=== PATIENT | female | born 2000 | race Caucasian/White ===

== ENCOUNTER 2019-05-07 09:25 | Emergency (ER) | payer OTHER ==
[~2019-05-07] VITALS: Ht 157.5 cm; Wt 45.5 kg
[2019-05-07 10:49] LABS: BASO % 0.2 % (0.0-1.0); EOS % 0.2 % (0.0-3.0); HEMATOCRIT 42.6 % (36.0-47.0); HEMOGLOBIN 13.4 g/dl (12.0-15.5); LYMPH # 0.8 10^3/uL (1.5-5.0); LYMPH % 12.2 % (24.0-44.0); MEAN CORPUSCULAR HEMOGLOBIN 30.3 pg (27.0-33.0); MEAN CORPUSCULAR HGB CONC 31.5 g/dl (32.0-36.5); MEAN CORPUSCULAR VOLUME 96.4 fl (80.0-96.0); MONO # 0.5 10^3/uL (0.0-0.8); MONO % 7.2 % (0.0-5.0); NEUTROPHILS % 79.9 % (36.0-66.0); PLATELET COUNT, AUTOMATED 252 10^3/uL (150-450); RED BLOOD COUNT 4.42 10^6/uL (4.00-5.40); WHITE BLOOD COUNT 6.3 10^3/uL (4.0-10.0)
[2019-05-07 12:43] LABS: CHLAMYDIA DNA AMPLIFICATION NEGATIVE (NEGATIVE); GC DNA AMPLIFICATION NEGATIVE (NEGATIVE)
--- NOTE | 2019-05-07 13:02 | REP ---
Pelvic ultrasound for pelvic pain: The studies performed transabdominal, endovaginal and Doppler ultrasound assessment: The uterus is anteverted and anteflexed and normal size measuring 8.9 x 3.3 x 4.9 cm. The endometrium is not thickened measuring 7.9 mm. Right ovary: The right ovary measures 3.1 x 1.8 x 3.3 cm and is normal size. There is a complex follicle measuring 1.0 x 1.4 0.5 cm. The There is vascular flow with Doppler assessment, the resistive index in the parenchymal arteries measuring 0.60. Left ovary: The left ovary measures 3.1 x 1.7 x 2.9 cm and is normal size. There is no dominant mass or cyst. There is vascular flow with the Doppler resistive index of the parenchymal arteries measuring 0.58. There is a trace of free fluid in the posterior cul-de-sac. Impression: Complex right ovarian follicle. There is vascular flow in both ovaries. Electronically Signed by Mahad Lopez MD 05/07/2019 12:54 P
[2019-05-07] MEDS ORDERED: ONDA4TAB6 PO (13:30)
[2019-05-07 13:37] VITALS: BP 126/60
--- NOTE | 2019-05-08 07:45 | ED PDOC ---
Post-Departure Follow-Up ft [facility] fp faxed formal report of pelvic us for fu Sukhdev Duckworth MD May 08, 2019 07:45
== END 2019-05-07 13:39 | disposition home or self-care (01) ==
LOC: M ED 09:25
DX: R10.9 Unspecified abdominal pain (principal); N83.01 Follicular cyst of right ovary

== ENCOUNTER 2020-03-02 16:37 | Emergency (ER) | payer OTHER ==
[~2020-03-02] VITALS: Ht 157.5 cm; Wt 48.3 kg
[~2020-03-02 16:37] MED LIST: ONDA4TAB6 PO
[2020-03-02] MEDS ORDERED: CETI-24 PO (17:18)
[2020-03-02] MEDS ORDERED: SERT-138 PO (17:18)
[2020-03-02 18:35] LABS: HEMATOCRIT 37.8 % (36.0-47.0); HEMOGLOBIN 11.9 g/dl (12.0-15.5); MEAN CORPUSCULAR HEMOGLOBIN 30.3 pg (27.0-33.0); MEAN CORPUSCULAR HGB CONC 31.5 g/dl (32.0-36.5); MEAN CORPUSCULAR VOLUME 96.2 fl (80.0-96.0); PLATELET COUNT, AUTOMATED 342 10^3/uL (150-450); RED BLOOD COUNT 3.93 10^6/uL (4.00-5.40); WHITE BLOOD COUNT 10.2 10^3/uL (4.0-10.0)
[2020-03-02 18:39] LABS: AMPHETAMINES LEVEL URINE NEGATIVE (NEGATIVE); BARBITURATES URINE NEGATIVE (NEGATIVE); BENZODIAZEPINES URINE NEGATIVE (NEGATIVE); CANNABINOIDS URINE POSITIVE (NEGATIVE); COCAINE METABOLITE URINE NEGATIVE (NEGATIVE); METHADONE URINE NEGATIVE (NEGATIVE); OPIATES URINE NEGATIVE (NEGATIVE); PHENCYCLIDINE URINE NEGATIVE (NEGATIVE)
[2020-03-02 19:05] LABS: ALBUMIN 4.1 GM/DL (3.2-5.2); ALT/SGPT 13 U/L (12-78); BILIRUBIN,DIRECT 0.3 MG/DL (0.0-0.2); BILIRUBIN,TOTAL 1.5 MG/DL (0.2-1.0); BLOOD UREA NITROGEN 11 MG/DL (7-18); CALCIUM LEVEL 9.1 MG/DL (8.5-10.1); CARBON DIOXIDE LEVEL 26 MEQ/L (21-32); CHLORIDE LEVEL 106 MEQ/L (98-107); CREATININE FOR GFR 0.65 MG/DL (0.55-1.30); ETHYL ALCOHOL (ETHANOL) < 0.003 % (0.000-0.010); GLUCOSE, FASTING 82 MG/DL (70-100); POTASSIUM SERUM 3.8 MEQ/L (3.5-5.1); SALICYLATE LEVEL < 1.7 MG/DL (5.0-30.0); SODIUM LEVEL 139 MEQ/L (136-145); TOTAL PROTEIN 7.2 GM/DL (6.4-8.2)
[2020-03-02 19:06] LABS: ACETAMINOPHEN LEVEL < 2.0 UG/ML (10.0-30.0)
[2020-03-02] MEDS ORDERED: ACETAMINOPHEN TAB 650MG DOSE (2X325MG) PO ONE (20:15)
[2020-03-02] MEDS ORDERED: IBUPROFEN 600MG TAB PO ONE (23:15)
[2020-03-02 23:46] VITALS: BP 115/57
--- NOTE | 2020-03-03 21:32 | ECGEPIP ---
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
== END 2020-03-03 00:05 ==
LOC: M ED 16:37
DX: F32.9 Major depressive disorder, single episode, unspecified (principal); R45.851 Suicidal ideations; F12.10 Cannabis abuse, uncomplicated
CPT/HCPCS: 36415; 80048; 80076; 80307; 84443; 85027; 93005; 99284; G0480; U0002